=== PATIENT | female | born 1950 | race Caucasian/White ===

== ENCOUNTER 2025-08-19 14:30 | Emergency (ER) | payer MEDICARE, OTHER ==
[2025-08-19 15:13] LABS: #Basophils 0.03 10x3/uL (0.0-0.2); #Eosinophils 0.14 10x3/uL (0.0-0.7); #Monocytes 0.59 10x3/uL (0.11-0.59); #Neutrophils 1.69 10x3/uL (1.40-6.50); %Basophils 0.7 % (0.0-1.0); %Eosinophils 3.4 % (0.0-10.0); %Lymphocytes 40.5 % (21.0-51.0); %Monocytes 14.2 % (0.0-10.0); %Neutrophils 40.7 % (42.0-75.0); Hematocrit 33.1 % (36.0-47.0); Hemoglobin 11.0 g/dL (12.0-16.0); Mean Corpuscular Hemoglobin 35.0 pg (27.0-31.0); Mean Corpuscular Volume 105.4 fL (78.0-98.0); Platelet Count 217 10x3/uL (130-400); Red Blood Cell (RBC) Count 3.14 mill/uL (4.20-5.40); White Blood Cell (WBC) Count 4.15 10x3/uL (4.8-10.8)
[2025-08-19] MEDS ORDERED: Ondansetron PF 4 MG/2 ML Vial ONE (15:26)
[2025-08-19 15:33] LABS: ALT (SGPT) 17 U/L (Less than 34); AST (SGOT) 60 U/L (11-34); Albumin 2.6 g/dL (3.1-4.5); Alkaline Phosphatase 73 U/L (40-110); Anion Gap 13 mmol/L (10-20); BUN (Urea Nitrogen) 17 mg/dL (9.8-20.1); Bilirubin, Total 0.3 mg/dL (0.3-1.2); Calc. Creatinine Clearance 0 mL/min (70-130); Calcium 8.6 mg/dL (7.8-10.44); Carbon Dioxide 22 mmol/L (23-31); Chloride 102 mmol/L (98-107); Globulin 2.8 g/dL (2.4-3.5); Glucose 88 mg/dL (83-110); Potassium 4.7 mmol/L (3.5-5.1); Sodium 132 mmol/L (136-145)
== END 2025-08-19 17:11 | disposition home or self-care (01) ==
LOC: ERS 14:30
DX: S02.2XXA Fracture of nasal bones, initial encounter for closed fracture (principal); R79.89 Other specified abnormal findings of blood chemistry; I12.9 Hypertensive chronic kidney disease with stage 1 through stage 4 chronic kidney disease, or unspecified chronic kidney disease; N18.9 Chronic kidney disease, unspecified; Z79.899 Other long term (current) drug therapy; W18.30XA Fall on same level, unspecified, initial encounter; Y92.009 Unspecified place in unspecified non-institutional (private) residence as the place of occurrence of the external cause
CPT/HCPCS: 70450; 70486; 71045; 80053; 85025; 93005; 96374; 96375; J2272; J2405